=== PATIENT | female | born 1940 | race Caucasian/White ===

== ENCOUNTER → 2016-11-17 | Day surgery (SDC) | payer MEDICARE, OTHER ==
[~2016-11-17] MED LIST: ACETAMINOPHEN/HYDROcodone 325 MG/5 MG TAB ONE; AMLO5TAB22 PO; BACITRACIN IM FOR SOLN 50,000 UNIT VIAL ONE; BUPIVACAINE/EPINEPHRINE 0.25% 50 ML VIAL ONE; CALCTAB38 PO; CANA300T PO; CETI10 PO; CRANCAP5 PO; EXEN1INJ SQ; GABA600T PO; GENTAMICIN SULFATE 80 MG/2 ML VIAL ONE; HYDR2.5C EX; JANU50TA9 PO; KETO2SHA5 TOP; KETOROLAC TROMETHAMINE 30 MG/ML (IVP) VIAL IV PUSH ONE; LACTATED RINGER'S 1000 ML INJ 1,000 ML ONE; MEPERIDINE HCL 25 MG/ML VIAL ONE; MIDAZOLAM HCL 2 MG/2 ML VIAL ONE; MORPHINE SULFATE 4 MG/ML INJ ONE; NORC7.5T PO; ONDANSETRON HCL 4 MG/2 ML VIAL IV PUSH ONE; PRAM0.25 PO; PROPOFOL 200 MG/20 ML AMP IV ONE; SODIUM CHLOR 0.9% 250 ML INJ 250 ML IV ONE; SODIUM CHLORIDE 0.9% INJ 10 ML ONE; VANCOMYCIN HCL 1000 MG VIAL ONE; Z.0.COMMODE-3:1; Z.0.CPM; Z.0.WALKERFRONT; ZOLO50TA PO; [UNRECOGNIZED DRUG - CODE] EX; [UNRECOGNIZED DRUG - CODE] PO; [UNRECOGNIZED DRUG - CODE] PO; ceFAZolin 2 GM PREMIX 50 ML ONE; ceFAZolin INJ 1,000 MG VIAL ONE
--- NOTE | 2016-11-17 11:34 | TN ---
cc: AKIL MERCEDES MD DATE OF SURGERY 11/17/2016 PREOPERATIVE DIAGNOSIS Left knee medial compartment severe osteoarthritis, chondromalacia patella, genu varus deformity. POSTOPERATIVE DIAGNOSIS Left knee medial compartment severe osteoarthritis, chondromalacia patella, genu varus deformity. 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 PROCEDURE My behavioral assistant Luis Mercedes MD was present for the entire surgical case. He was medically necessary for the entire case because of the complexity case and to facilitate the performance of the procedure. The WATERSHED TENDER at the back table was not a skill set for this case to manipulate the instruments e.g. multiple different types of soft tissue retractors, trial implants, permanent implants including bone cement. The patient brought into the operating room, had satisfactory anesthesia by the Department of Anesthesia. The left lower extremity was prepped and draped in the usual sterile manner. The extremity was exsanguinated by Chetan wrap and tourniquet inflated to 250 mmHg. Small anterior medial exposure to the knee was made. All bleeders were coagulated. A paramedian capsulotomy was performed. The patient was found to have severe osteoarthritis involving the medial compartment and severe chondromalacia of the medial facet of the patella. An oscillating saw was used to perform partial patellectomy of the medial facet of the patella. Using the [employer] unicondylar arthroplasty system, the guide was used for the distal femur posterior condyle cut. Approximately 6-7 mm were removed. A bur was then used to contour the proximal tibia to accept a #2 6.5 mm tibial component and the distal femur was contoured and prepared in order to accept a number two left medial femoral component. The wound was irrigated copious. The wound itself was dry. The medial osteophytes were removed. The patient was found to have excellent correction of a varus deformity and satisfactory balancing of the knee in both flexion/extension. All trial components were removed and preparation for cementing was made. The knee was initially injected with 55 cc of 0.25% Marcaine with epinephrine. One packages of high viscosity bone cement by [employer] was used. First the tibial component was cemented which is #2 6.5 mm tibial component and then the femoral component was cemented which is a #2 left medial femoral component. All excess bone cement was removed. The bone cement was allowed to harden for 12-1/2 minutes. The tourniquet was deflated. All bleeders were coagulated. The wound itself was dry. It was irrigated with copious amounts of sterile saline antibiotic solution. The wound was closed over an eighth inch Hemovac drain. The capsule was repaired using multiple interrupted #2 Tycron suture. Subcutaneous tissues closed in multiple layers using 2-0 Vicryl. Skin was approximated with running subcuticular 3-0 Vicryl. Steri-Strips were used, Xeroform gauze and a sterile dressing applied. The patient tolerated the procedure well and arrived in the recovery room in stable and satisfactory condition. MD BHUPENDRA Gan/LISANDRO /11:01 AM /11:22 AM
== END | disposition home or self-care (01) ==
LOC: ESDC 08:04
PROVIDERS: ATTEND Orthopaedic Surgery Orthopaedic Surgery of the Spine
DX: M17.12 Unilateral primary osteoarthritis, left knee (principal); M22.42 Chondromalacia patellae, left knee; M21.162 Varus deformity, not elsewhere classified, left knee
CPT/HCPCS: 01400; 27446; C1776; J0690; J1580; J1885; J2175; J2250; J2270; J2405; J3010; J3370; J7050; J7120